=== PATIENT | male | born 1990 | race Caucasian/White ===

== ENCOUNTER → 2016-09-25 | Outpatient (REF) | LOC: LAB 14:14 | DX: R42 Dizziness and giddiness (principal) ==

== ENCOUNTER → 2017-10-25 | Outpatient (CLI) | payer OTHER | LOC: RAD 12:44 | DX: M25.572 Pain in left ankle and joints of left foot (principal); X50.0XXA Overexertion from strenuous movement or load, initial encounter ==

== ENCOUNTER 2018-02-20 22:21 | Emergency (ER) | payer OTHER ==
[2018-02-20 23:19] LABS: HEMATOCRIT 46.6 % (42.0-52.0); HEMOGLOBIN 15.9 g/dL (13.5-18.0); MEAN CELL VOLUME 89 fl (78-100); MEAN CORPUSCULAR HEMOGLOBIN 31 pg (27-31); MEAN CORPUSCULAR HGB CONC 34 g/dL (33-37); MEAN PLATELET VOLUME 9.1 fl (7.4-10.4); PLATELET COUNT 279 K/mm3 (130-400); RED BLOOD COUNT 5.21 M/mm3 (4.20-5.60); RED CELL DISTRIBUTION WIDTH 12.4 % (11.5-14.5); WHITE BLOOD COUNT 13.1 K/mm3 (4.8-10.8)
[2018-02-20 23:35] LABS: ALBUMIN 4.6 g/dL (3.5-5.0); CALCIUM 9.4 mg/dL (8.4-10.2); POTASSIUM 3.7 mmol/L (3.6-5.0); TOTAL BILIRUBIN 0.7 mg/dL (0.2-1.3)
[2018-02-20 23:49] LABS: URINE APPEARANCE HAZY; URINE BILIRUBIN NEGATIVE (NEGATIVE); URINE BLOOD 50 ery/uL (NEGATIVE); URINE COLOR YELLOW; URINE GLUCOSE NEGATIVE (NEGATIVE); URINE KETONE 1+ (NEGATIVE); URINE NITRATE NEGATIVE (NEGATIVE); URINE PROTEIN(semi-quant) TRACE mg/dL (NEGATIVE); URINE UROBILINOGEN NORMAL (NORMAL)
[2018-02-20 23:50] LABS: URINE LEUKOCYTE ESTERASE TRACE (NEGATIVE)
[2018-02-20 23:51] LABS: URINE MUCUS PRESENT (NOT PRESENT)
[2018-02-20 23:57] LABS: LYMPHOCYTE 9 % (20-51); MONOCYTE 5 % (3-10); NEUTROPHILS 83 % (42-75)
[2018-02-21] MEDS ORDERED: ZOFRAN ODT4 MG PO (00:15)
[2018-02-21] MEDS ORDERED: PERCOCET 325 MG1 TA2 PO (00:15)
[2018-02-21] MEDS ORDERED: SEPTRA DS 8001 TAB PO (00:15)
[2018-02-21] MEDS ORDERED: FLOMAX0.4 MG PO (00:15)
[2018-02-21 00:26] VITALS: BP 115/72
== END 2018-02-21 00:26 | disposition home or self-care (01) ==
LOC: ED 22:21
PROVIDERS: Family Medicine
DX: N39.0 Urinary tract infection, site not specified (principal); N20.1 Calculus of ureter; F17.220 Nicotine dependence, chewing tobacco, uncomplicated

== ENCOUNTER 2020-10-19 07:23 | Emergency (ER) | payer OTHER ==
[~2020-10-19] VITALS: Ht 175.3 cm; Wt 82.7 kg
[~2020-10-19 07:23] MED LIST: FLOMAX0.4 MG PO; PERCOCET 325 MG1 TA2 PO; SEPTRA DS 8001 TAB PO; ZOFRAN ODT4 MG PO
[2020-10-19 08:19] LABS: BASO # 0.06 (0.02-0.10); EOS # 0.36 (0.04-0.40); HEMATOCRIT 46.9 % (42.0-52.0); HEMOGLOBIN 15.8 g/dL (13.5-18.0); LYMPH# 2.62 (1.50-4.00); MEAN CELL VOLUME 92 fl (78-100); MEAN CORPUSCULAR HEMOGLOBIN 31 pg (27-31); MEAN CORPUSCULAR HGB CONC 34 g/dL (33-37); MEAN PLATELET VOLUME 8.9 fl (7.4-10.4); MONO # 0.72 (0.20-0.80); NEU # 5.21 (1.40-6.50); PLATELET COUNT 262 K/mm3 (130-400); RED BLOOD COUNT 5.09 M/mm3 (4.20-5.60); RED CELL DISTRIBUTION WIDTH 11.8 % (11.5-14.5)
[2020-10-19 08:36] LABS: ALBUMIN 4.2 g/dL (3.5-5.0); POTASSIUM 4.1 mmol/L (3.5-5.1); SODIUM 139 mmol/L (136-145)
[2020-10-19 08:38] LABS: CALCIUM 9.8 mg/dL (8.3-10.5)
[2020-10-19 08:39] LABS: GLUCOSE 100 mg/dL (75-110); TOTAL PROTEIN 7.5 g/dL (6.4-8.3)
[2020-10-19 08:40] LABS: CARBON DIOXIDE 26 mmol/L (22-29)
[2020-10-19 08:41] LABS: TOTAL BILIRUBIN 0.5 mg/dL (0.2-1.2)
[2020-10-19 08:44] LABS: AST-SGOT 28 U/L (5-34)
[2020-10-19 08:45] LABS: ALT/SGPT 36 U/L (0-55)
[2020-10-19 08:57] LABS: TROPONIN-I < 0.03 ng/mL (<0.030)
[2020-10-19 09:15] LABS: D-DIMER 0.15 mg/L FEU (0.15-0.50)
[2020-10-19 09:28] VITALS: BP 124/96
== END 2020-10-19 09:40 | disposition home or self-care (01) ==
LOC: ED 07:23
PROVIDERS: Physician Assistant
DX: R07.89 Other chest pain (principal)

== ENCOUNTER → 2021-04-20 | Outpatient (CLI) | payer OTHER ==
[2021-04-20 11:20] LABS: BASO # 0.04 K/mm3 (0.02-0.10); EOS # 0.35 K/mm3 (0.04-0.40); HEMATOCRIT 49.9 % (42.0-52.0); LYMPH# 2.98 K/mm3 (1.50-4.00); MEAN CELL VOLUME 91 fl (78-100); MEAN CORPUSCULAR HEMOGLOBIN 31 pg (27-31); MEAN CORPUSCULAR HGB CONC 34 g/dL (33-37); MEAN PLATELET VOLUME 8.6 fl (7.4-10.4); MONO # 0.73 K/mm3 (0.20-0.80); NEU # 4.65 K/mm3 (1.40-6.50); PLATELET COUNT 304 K/mm3 (130-400); RED CELL DISTRIBUTION WIDTH 12.1 % (11.5-14.5); WHITE BLOOD COUNT 8.8 K/mm3 (4.8-10.8)
[2021-04-20 11:43] LABS: ALBUMIN 4.7 g/dL (3.5-5.0); POTASSIUM 4.1 mmol/L (3.5-5.1)
[2021-04-20 11:44] LABS: CALCIUM 9.5 mg/dL (8.3-10.5)
[2021-04-20 11:46] LABS: TOTAL PROTEIN 8.1 g/dL (6.4-8.3)
[2021-04-20 11:47] LABS: TOTAL BILIRUBIN 0.7 mg/dL (0.2-1.2)
== END ==
LOC: LAB 11:11
PROVIDERS: Family Medicine
DX: Z00.00 Encounter for general adult medical examination without abnormal findings (principal); E78.5 Hyperlipidemia, unspecified; G44.009 Cluster headache syndrome, unspecified, not intractable; J30.2 Other seasonal allergic rhinitis; N40.1 Benign prostatic hyperplasia with lower urinary tract symptoms; J35.8 Other chronic diseases of tonsils and adenoids

== ENCOUNTER → 2021-04-25 | Outpatient (CLI) | payer OTHER | LOC: RAD 06:53 | DX: R74.8 Abnormal levels of other serum enzymes (principal) ==

== ENCOUNTER → 2021-09-20 | Outpatient (CLI) | payer OTHER ==
[2021-09-20 12:58] LABS: URINE WBC 0 /hpf (0-3)
[2021-09-20 13:14] LABS: BASO # 0.05 K/mm3 (0.02-0.10); EOS # 0.38 K/mm3 (0.04-0.40); EOS % 5.3 % (0.0-4.0); HEMATOCRIT 49.4 % (42.0-52.0); HEMOGLOBIN 16.2 g/dL (13.5-18.0); LYMPH# 2.67 K/mm3 (1.50-4.00); MEAN CELL VOLUME 93 fl (78-100); MEAN CORPUSCULAR HEMOGLOBIN 31 pg (27-31); MEAN CORPUSCULAR HGB CONC 33 g/dL (33-37); MEAN PLATELET VOLUME 8.9 fl (7.4-10.4); MONO # 0.68 K/mm3 (0.20-0.80); PLATELET COUNT 256 K/mm3 (130-400); RED CELL DISTRIBUTION WIDTH 11.8 % (11.5-14.5); WHITE BLOOD COUNT 7.2 K/mm3 (4.8-10.8)
[2021-09-20 13:43] LABS: URINE APPEARANCE CLEAR; URINE BILIRUBIN NEGATIVE (NEGATIVE); URINE BLOOD NEGATIVE (NEGATIVE); URINE COLOR LIGHT YELLOW; URINE GLUCOSE NEGATIVE (NEGATIVE); URINE KETONE NEGATIVE (NEGATIVE); URINE LEUKOCYTE ESTERASE NEGATIVE (NEGATIVE); URINE NITRATE NEGATIVE (NEGATIVE); URINE PROTEIN(semi-quant) NEGATIVE (NEGATIVE); URINE UROBILINOGEN NORMAL (NORMAL)
[2021-09-20 14:17] LABS: POTASSIUM 4.6 mmol/L (3.5-5.1); SODIUM 139 mmol/L (136-145)
[2021-09-20 14:18] LABS: ALBUMIN 4.6 g/dL (3.5-5.0); CALCIUM 9.9 mg/dL (8.3-10.5)
[2021-09-20 14:21] LABS: GLUCOSE 98 mg/dL (75-110); TOTAL PROTEIN 7.9 g/dL (6.4-8.3)
[2021-09-20 14:22] LABS: CARBON DIOXIDE 26 mmol/L (22-29); TOTAL BILIRUBIN 0.6 mg/dL (0.2-1.2)
[2021-09-20 14:25] LABS: AST-SGOT 29 U/L (5-34)
[2021-09-20 14:28] LABS: ALT/SGPT 31 U/L (0-55)
[2021-09-20 14:29] LABS: LIPASE 26 U/L (8-78)
== END ==
LOC: LAB 12:52
PROVIDERS: Nurse Practitioner Family
DX: R30.9 Painful micturition, unspecified (principal); R10.9 Unspecified abdominal pain

== ENCOUNTER → 2023-03-27 | Outpatient (CLI) | payer BC ==
[2023-03-27 11:39] LABS: BASO # 0.08 K/mm3 (0.02-0.10); EOS % 3.3 % (0.0-4.0); HEMATOCRIT 45.6 % (42.0-52.0); HEMOGLOBIN 15.2 g/dL (13.5-18.0); LYMPH# 3.39 K/mm3 (1.50-4.00); MEAN CELL VOLUME 93 fl (78-100); MEAN CORPUSCULAR HEMOGLOBIN 31 pg (27-31); MEAN CORPUSCULAR HGB CONC 33 g/dL (33-37); MEAN PLATELET VOLUME 8.7 fl (7.4-10.4); MONO # 0.72 K/mm3 (0.20-0.80); NEU # 4.56 K/mm3 (1.40-6.50); PLATELET COUNT 293 K/mm3 (130-400); RED BLOOD COUNT 4.88 M/mm3 (4.20-5.60); RED CELL DISTRIBUTION WIDTH 12.1 % (11.5-14.5); WHITE BLOOD COUNT 9.1 K/mm3 (4.8-10.8)
[2023-03-27 11:48] LABS: ALBUMIN 4.4 g/dL (3.5-5.0); SODIUM 141 mmol/L (136-145)
[2023-03-27 11:49] LABS: CALCIUM 9.5 mg/dL (8.3-10.5)
[2023-03-27 11:50] LABS: GLUCOSE 101 mg/dL (75-110)
[2023-03-27 11:51] LABS: TOTAL PROTEIN 7.3 g/dL (6.4-8.3)
[2023-03-27 11:52] LABS: CARBON DIOXIDE 24 mmol/L (22-29); TOTAL BILIRUBIN 0.4 mg/dL (0.2-1.2)
[2023-03-27 11:56] LABS: AST-SGOT 16 U/L (5-34)
[2023-03-27 11:57] LABS: ALT/SGPT 20 U/L (0-55)
[2023-03-27 12:06] LABS: TROPONIN-I < 0.030 ng/mL (0.00-0.033)
== END ==
LOC: LAB 10:56
PROVIDERS: Nurse Practitioner
DX: R00.2 Palpitations (principal); R06.00 Dyspnea, unspecified